=== PATIENT | female | born 1965 | race Caucasian/White ===

== ENCOUNTER 2018-01-28 05:32 | Day surgery (SDC) | payer BC ==
[2018-01-22 10:38] LABS: BASOPHILS % (AUTO) 0.5 % (0-1); EOSINOPHILS # (AUTO) 0.3 X10'3 (0-0.9); EOSINOPHILS % (AUTO) 4.9 % (0-6); LYMPHOCYTES # (AUTO) 1.2 X10'3 (1.1-4.8); LYMPHOCYTES % (AUTO) 22.1 % (21-51); MEAN CORPUSCULAR HEMOGLOBIN 32.4 PG (27.0-31.0); MEAN CORPUSCULAR HGB CONC 34.4 % (33.0-36.5); MEAN CORPUSCULAR VOLUME 94.3 FL (78-98); MEAN PLATELET VOLUME 8.3 FL (7.4-10.4); MONOCYTES # (AUTO) 0.6 X10'3 (0-0.9); MONOCYTES % (AUTO) 11.6 % (2-12); NEUTROPHILS # (AUTO) 3.4 X10'3 (1.8-7.7); NEUTROPHILS % (AUTO) 60.9 % (42-75); PRE OP HEMATOCRIT 42.2 % (35.0-45.0); PRE OP HEMOGLOBIN 14.5 g/dL (12.0-16.0); PRE OP PLATELET COUNT 222 X10'3 (140-440); RED BLOOD COUNT 4.48 X10'6 (4.20-5.60); RED CELL DISTRIBUTION WIDTH 13.9 % (11.5-14.5)
[2018-01-22 10:49] LABS: PRE OP INR 0.9 INR; PRE OP PROTIME 9.7 SECONDS (9.0-12.0)
[2018-01-22 10:53] LABS: ALBUMIN 4.2 G/DL (3.4-5.0); ALBUMIN/GLOBULIN RATIO 1.1 (1.1-1.5); ALKALINE PHOSPHATASE 107 IU/L (46-116); BLOOD UREA NITROGEN 12 MG/DL (7-18); BUN/CREATININE RATIO 12.2 (6.6-38.0); CALCIUM 10.3 MG/DL (8.5-10.1); CHLORIDE 103 MMOL/L (99-107); CREATININE 0.98 MG/DL (0.40-0.90); PRE OP ALT 57 U/L (30-65); PRE OP ANION GAP 8 (8-16); PRE OP AST 36 U/L (10-37); PRE OP BILIRUB, TOTAL 0.5 MG/DL (0.0-1.0); PRE OP GLUCOSE 103 MG/DL (70-104); PRE OP POTASSIUM 4.1 MMOL/L (3.4-5.1); PRE OP SODIUM 138 MMOL/L (135-145); TOTAL CARBON DIOXIDE 26.9 MMOL/L (24-32); TOTAL PROTEIN 7.9 G/DL (6.4-8.2); eGFR 60 ML/MIN
[2018-01-28] VITALS (18 sets, daily range): BP systolic 93–148; BP diastolic 50–98
[~2018-01-28] VITALS: Ht 154.9 cm; Wt 62.6 kg
[~2018-01-28 05:32] MED LIST: ASPI-10 PO; ATOR20TA PO; Cefazolin 2GM/50ML dext iso,osmotic IVPB IV ONE; GEMF600T4 PO; VANCOMYCIN INJ 1000 MG in NORMAL SALINE 250ml IV.SOLN IV ONE; famotidine 20mg tablet PO ONE
[2018-01-28] MEDS ORDERED: LIDOcaine 1% (10mg/ml) 2ml vial ONE (05:48)
[2018-01-28] MEDS: ringers solution, lacted 1,000 ML IV SCH ×2 (06:18→11:14)
[2018-01-28] MEDS ORDERED: sevoflurane 250ml liquid IH ONE (07:21)
[2018-01-28] MEDS ORDERED: fentaNYL /PF 50mcg/ml 5ml ampule ONE (07:24)
[2018-01-28] MEDS ORDERED: midazolam 2 mg/2 ml injection ONE (07:24)
[2018-01-28] MEDS ORDERED: propofol inj 20 ML IV ONE (07:26)
[2018-01-28] MEDS ORDERED: ringers solution, lacted 1,000 ML IV SCH (08:46)
[2018-01-28] MEDS ORDERED: acetaminophen 1,000mg/100ml IV 100 ML IV PRN (08:50)
[2018-01-28] MEDS ORDERED: morphine 4 MG/ML inj SYRINge IV PRN ×2 (08:50)
[2018-01-28] MEDS ORDERED: meperidine/PF 25mg/ml syringe IV PRN ×2 (08:50)
[2018-01-28] MEDS ORDERED: ondansetron/PF 4mg/2ml inj IV PRN ×2 (08:50→09:50)
[2018-01-28] MEDS ORDERED: proCHLORperazine 10 MG/2 ml inj IV PRN (08:50)
[2018-01-28] MEDS ORDERED: ketorolac trometh. 30mg/ml inj. IV ONE (08:50)
[2018-01-28] MEDS ORDERED: BUPIVAcaine/PF 2.5mg/ml (0.25%) 10ml vial ONE (09:11)
[2018-01-28] MEDS ORDERED: magnesium hydroxide 30ml (MOM) UD suspension PO PRN (09:50)
[2018-01-28] MEDS ORDERED: acetaminophen 325mg tablet PO PRN (09:50)
[2018-01-28] MEDS ORDERED: bisacodyl 10mg suppository rectal RC PRN (09:50)
[2018-01-28] MEDS ORDERED: HYDROmorphone inj. 0.5 MG/0.5 ML DISP.SYRIN IV PRN (09:50)
[2018-01-28] MEDS ORDERED: HYDROcodone/acetaminophen 10/325mg tab PO PRN (09:50)
[2018-01-28] MEDS ORDERED: diphenhydrAMINE 25mg capsule PO PRN ×2 (09:50)
[2018-01-28] MEDS: meperidine/PF 25mg/ml syringe IV PRN ×2 (09:59→10:08)
[2018-01-28] MEDS: ketorolac trometh. 30mg/ml inj. IV SCH ×2 (14:04→20:06)
[2018-01-28] MEDS: HYDROcodone/acetaminophen 10/325mg tab PO PRN (15:00)
[2018-01-28] MEDS: ceFAZolin 1GM/D5W- ADD-VANTAGE 50 ML IV SCH ×2 (16:19→23:16)
[2018-01-28] MEDS: potassium Cl 20mEq in NS 1,000 ML IV SCH ×2 (16:20→23:28)
[2018-01-28] MEDS ORDERED: vancomycin/NS 1 GM ADD-VANTAGE 250 ML IV SCH (20:00)
[2018-01-28] MEDS ORDERED: sennosides 8.6mg tablet PO SCH (21:00)
[2018-01-28] MEDS: gemfibrozil 600mg tablet PO SCH (23:16)
[2018-01-29] MEDS: ketorolac trometh. 30mg/ml inj. IV SCH ×2 (01:59→08:45)
[2018-01-29 02:00] VITALS: BP 118/64
[2018-01-29] MEDS: HYDROcodone/acetaminophen 10/325mg tab PO PRN ×3 (02:00→10:20)
[2018-01-29 06:00] VITALS: BP 107/57
[2018-01-29] MEDS ORDERED: HYDR-3972 PO (06:59)
[2018-01-29] MEDS ORDERED: atorvastatin 20mg tablet PO SCH ×2 (08:00→21:00)
[2018-01-29] MEDS: gemfibrozil 600mg tablet PO SCH (08:00)
[2018-01-29] MEDS ORDERED: aspirin 325mg tablet PO SCH (08:30)
== END 2018-01-29 10:45 | disposition home or self-care (01) ==
LOC: PAS 05:32 → ORTHO 4S 11:02 → PAS 01-29 10:45
PROVIDERS: ATTEND Orthopaedic Surgery
DX: M75.121 Complete rotator cuff tear or rupture of right shoulder, not specified as traumatic (principal); M75.21 Bicipital tendinitis, right shoulder; M19.011 Primary osteoarthritis, right shoulder; K21.9 Gastro-esophageal reflux disease without esophagitis; E78.5 Hyperlipidemia, unspecified; I35.2 Nonrheumatic aortic (valve) stenosis with insufficiency; E78.00 Pure hypercholesterolemia, unspecified; Z92.3 Personal history of irradiation; Z85.830 Personal history of malignant neoplasm of bone; Z90.89 Acquired absence of other organs; Z87.891 Personal history of nicotine dependence; Z92.21 Personal history of antineoplastic chemotherapy; Z79.82 Long term (current) use of aspirin; Z72.89 Other problems related to lifestyle; Z79.899 Other long term (current) drug therapy; Z98.890 Other specified postprocedural states; Z82.49 Family history of ischemic heart disease and other diseases of the circulatory system; Z80.9 Family history of malignant neoplasm, unspecified
CPT/HCPCS: 23120; 23412; 36415; 80053; 85025; 85610; 85730; A4565; A6223; A6253; A6449; C1713; J0131; J0690; J1885; J2175; J2250; J2270; J2405; J2704; J3010; J3370; J3490; J7120; A7000